=== PATIENT | female | born 2000 | race Caucasian/White ===

== ENCOUNTER 2024-09-12 08:25 | Emergency (ER) | payer SELFPAY ==
[2024-09-12 08:26] VITALS: BP 113/99; PULSE 115; RESP 24; TEMP 36.6; O2SAT 98; BMI 19.1
--- NOTE | 2024-09-12 09:55 | EDS_ITS ---
HPI History of Present Illness Chief Complaint: Abd Pain Informant: patient Narrative Narrative: Patient is a 24-year-old female history of ovarian cyst presenting with sudden onset of right lower quadrant abdominal pain. Patient states that she woke up and notes her stomach was upset. She may be that was from the food she ate last night. She went to the bathroom to have a bowel movement. While she was in the bathroom she had progressively worsening right lower quadrant abdominal pain. She states started hyperventilating her legs and arms were tingling. She did take thousand OF Tylenol. She notes that she vomited on her way here. The pain has since started to subside and is feeling much better. She notes that this feels like her prior ruptured ovarian cyst. Her last menstrual period was 1 month ago and she started having vaginal bleeding today. She describes as a gush of blood. She denies any recent intercourse in the past day or 2. Denies any fever or chills. States that she felt fine last night. No other complaints or concerns reported at this time. Patient notes that she does not have an [employer] that she is new to the [facility]. [facility] Medical History Ovarian cyst Allergy/AdvReac Type Severity Reaction Status Date / Time diphenhydramine (From Allergy Anaphylaxis Verified 09/12/24 08:26 Benadryl) Social History Smoking Status: Current some day smoker tobacco type: e-cigarettes ROS ROS ED Constitutional Constitutional ED: Reports sweats; Denies chills or fever(s) Respiratory/Chest Respiratory/Chest: Denies cough Gastrointestinal Gastrointestinal: Reports abdominal pain, nausea and vomiting; Denies constipation or diarrhea Genitourinary Genitourinary ED: Reports other Details: Vaginal bleeding?started menstrual cycle today ; Denies dysuria, hematuria or urinary frequency Musculoskeletal Musculoskeletal: Denies arthralgias or myalgias Integumentary Denies rash Neurologic Neurologic: Denies paresthesias or weakness EXAM Physical Exam Const Vital Signs: 09/12/24 08:26 09/12/24 10:37 Temperature 98 F 98.0 F Temperature Source Oral Oral Pulse Rate 115 H 65 Respiratory Rate 24 H 16 Blood Pressure 113/99 H 109/73 Blood Pressure Mean 103 85 Pulse Ox 98 99 Oxygen Delivery Method Room Air Room Air Positive well nourished and well developed General Appearance ED: well developed and NAD HEENT Reports moist mucous membranes Eyes PERRL Neck supple Chest Wall inspection of chest normal and palpation of chest normal Resp normal respiratory effort and clear to auscultation bilaterally Cardio regular rate and regular rhythm GI GI Narrative: Soft, mild tenderness of the right pelvis. No peritoneal signs. No pain at McBurney's point. Back/Spine no CVA tenderness Neuro oriented x3 Sensorium / Orientation: alert Motor Exam: Negative for general weakness Psych mental status grossly normal Skin no rashes or lesions noted and no wounds MDM MDM MDM Narrative Medical decision making narrative: Patient evaluated for sudden onset of right pelvic pain. States it feels like her prior ruptured ovarian cyst. Her pain has subsided significantly since my evaluation and she states she is feeling much better. Differential includes ectopic , ovarian torsion, ruptured ovarian cyst and appendicitis. Her pain is lower than McBurney's point have a lower suspicion for appendicitis. As her pain has essentially resolved patient would like to defer further workup at this time. She is comfortable with a urine to rule out ectopic. Will be given outpatient referral for [employer]. Did discuss the risk of intermittent ovarian torsion and that if her pain worsens or comes back she should immediately return to the emergency room and we can pursue further workup at that time. Urinalysis most consistent with contamination. Not consistent with UTI. test is negative. Patient will follow-up with [employer]. Given return precautions. Vital signs normalized without any further intervention in the emergency room. Lab Data Labs: Laboratory Results - last 24 hr 09/12/24 10:15 Urine Color Yellow Urine Clarity Sl. Cloudy Urine pH 7.0 Ur Specific [place] 1.015 Urine Protein 30 H Urine Glucose (UA) Normal Urine Ketones 5 H Urine Occult Blood 50 H Urine Nitrite Negative Urine Bilirubin Negative Urine Urobilinogen 1 H Ur Leukocyte Esterase 25 H Urine RBC 0 SEEN Urine WBC 0 SEEN Ur Squamous Epith Cells 10-25 SEEN Urine Bacteria 1+ Urine Mucus 2+ Urine Test Negative Discharge Plan Triage Chief Complaint: Abd Pain ED Provider: Bertha Lipscomb Dx/Rx/DC Orders Clinical Impression: Acute pain in female pelvis Instructions: ED Pelvic Pain, Unknown Cause Primary Care Provider: Care Physician,No Primary Referrals: Annika Flor MD [Med Staff - Active Staff] - As soon as possible Care Physician,No Primary [Primary Care Provider] - Activity Restrictions/Additional Instructions: Your test was negative. Based on your history it is likely this was a ruptured ovarian cyst. We were not able to definitively rule out ovarian torsion or further pathology however if your symptoms worsen please immediately return to the emergency room. Otherwise as we discussed please alternate ibuprofen and Tylenol for pain and follow-up with [employer]. Print Language: Irish Disposition Disposition: Home, Self Care
[2024-09-12 10:20] LABS: Red Blood Cells-Urine 0 SEEN /hpf (0-5); White Blood Cells 0 SEEN /hpf (0-5)
[2024-09-12 10:21] LABS: Color, Urine Yellow (Yellow); Glucose, Dipstick Normal (Normal); Ketone-Dipstick 5 mg/dl (Negative); Leukocyte Esterase-Dipstick 25 /ul (Negative); Nitrite-Dipstick Negative (Negative); Occult Blood-Urine 50 /ul (Negative); Protein-Dipstick 30 mg/dl (Negative); Specific Gravity, Urine 1.015 (1.002-1.030); Urine Bilirubin Dipstick Negative (Negative); Urine Clarity Sl. Cloudy (Clear); Urine Urobilinogen 1 mg/dl (Normal)
[2024-09-12 10:27] LABS: Bacteria 1+ /hpf (None Seen); Mucous, Urine 2+ /hpf (<or=2+); Squamous Epithelial Cells - UA 10-25 SEEN /hpf (5-10)
[2024-09-12 10:28] LABS: Internal QC Validated? YES +Cl - CLEAR BKGD; Pregnancy, Urine Negative Negative
[2024-09-12 10:37] VITALS: BP 109/73; PULSE 65; RESP 16; TEMP 36.7; O2SAT 99
[2024-09-12 11:13] VITALS: BP 109/73; PULSE 65; RESP 16; TEMP 36.7; O2SAT 99
== END 2024-09-12 11:14 | disposition home or self-care (01) ==
PROVIDERS: Emergency Provider Emergency Medicine; Visit Provider Emergency Medicine
DX: R10.2 Pelvic and perineal pain (principal); R11.2 Nausea with vomiting, unspecified; F17.290 Nicotine dependence, other tobacco product, uncomplicated; Z87.42 Personal history of other diseases of the female genital tract
CPT/HCPCS: 81001; 81025; 99282

== ENCOUNTER 2024-12-23 12:41 | Emergency (ER) | payer SELFPAY ==
[2024-12-23 12:42] VITALS: BP 91/43; PULSE 79; RESP 20; TEMP 35.8; O2SAT 98
== END 2024-12-23 12:59 | disposition left against medical advice (07) ==
LOC: ED 12:59
DX: Z53.21 Procedure and treatment not carried out due to patient leaving prior to being seen by health care provider (principal)